=== PATIENT | female | born 1970 | race Caucasian/White ===

== ENCOUNTER → 2023-01-28 | Outpatient (CLI) | payer BC ==
--- NOTE | 2023-01-28 11:10 | Diagnostic Imaging Report ---
PROCEDURE: Pelvic comp/transvaginal sonogram. TECHNIQUE: Complete transabdominal and transvaginal pelvic ultrasound was performed. In addition, limited pelvic Doppler was performed. INDICATION: Pelvic pain. Patient has history of endometriosis with left oophorectomy. Uterus is anteverted measuring 7.0 x 4.4 x 3.8 cm. Endometrium appears approximately 5 mm in thickness, although it is somewhat limited in visualization. There is an area of increased echogenicity in the anterior uterine body measuring 2.7 x 1.5 x 1.0 cm. This may represent a fibroid. No other myometrial masses are seen. Left ovary is surgically absent. Right ovary measures 2.2 x 1.4 x 1.67 cm. Right ovary does contain an approximately 13 mm cyst, with low-level internal echoes. A 2nd cyst adjacent to the right ovary is seen measuring 18 mm may represent a paraovarian cyst. There is blood flow to the right ovary. There is no free fluid. IMPRESSION: 1. Heterogeneous appearance to the uterus with poorly visualized endometrium. There is a probable fibroid in the anterior uterus. 2. Surgically absent left ovary. 3. Right ovarian and paraovarian cysts, as described. Dictated by: Dictated on workstation # [id number]
== END ==
LOC: RAD 09:37
PROVIDERS: ATTEND Registered Nurse Critical Care Medicine
DX: N83.201 Unspecified ovarian cyst, right side (principal); N80.9 Endometriosis, unspecified; Z90.721 Acquired absence of ovaries, unilateral
CPT/HCPCS: 76830; 76856